=== PATIENT | male | born 2005 | race African-American/Black ===

== ENCOUNTER 2024-10-15 22:29 | Emergency (ER) | payer OTHER, SELFPAY ==
[2024-10-15 22:43] VITALS: BP 130/59
[2024-10-15 23:04] VITALS: BMI 25.6
[2024-10-15 23:09] VITALS: BP 123/66
--- NOTE | 2024-10-15 23:41 | ED.GENMED ---
History of Present Illness
General
Chief Complaint: Skin Surface Trauma
Source: patient
Time Seen by Provider: 10/15/24 23:00
History of Present Illness
History of Present Illness:
19-year-old male presents to the emergency room complaining of a laceration to his right middle finger. Patient cut the finger on a urvashi pot. Patient is right-hand dominant. His last tetanus shot was in 2014. He denies any other injuries.
Phy Exam
Physical Exam
Physical Exam:
General: Awake, Alert, Oriented X3. No acute distress.
Vitals: unremarkable
Head: Atraumatic
Eyes: Pupils equal, EOMI
Neck: Trachea midline
Neuro: Grossly nonfocal
Skin: Warm, dry, no rash
Extremities: pulses equal b/l, no edema. Approximately 2 cm laceration on the volar surface of the right middle finger. The laceration starts at the tip of the finger and extends down over the distal phalanx to the distal IP joint. Tendon exam is
intact. No foreign bodies noted.
Course
Orders/Labs/Results
Orders:
Orders
10/15/24 23:42
Tetanus/Diphth/Acelpertussis [Adacel] 0.5 ml IM .ONCE ONE
10/16/24 00:14
Tetanus/Diphth/Acelpertussis [Adacel] 0.5 ml .ROUTE .STK-MED ONE
10/16/24 00:21
Ibuprofen [Motrin] 400 mg .ROUTE .STK-MED ONE
10/16/24 00:22
Ibuprofen [Motrin] 400 mg PO NOW STA
Vital Signs
Initial and Last Documented VS:
Initial Vital Signs
Temp Pulse Resp BP Pulse Ox
98.4 F 92 20 130/59 98
10/15/24 22:43 10/15/24 22:43 10/15/24 22:43 10/15/24 22:43 10/15/24 22:43
Last Documented Vital Signs
Temp Pulse Resp BP Pulse Ox
98.4 F 95 18 123/66 99
10/15/24 22:43 10/15/24 23:09 10/15/24 23:09 10/15/24 23:09 10/15/24 23:42
Procedures
Laceration Closure
Right Middle Finger:
Size of Wound in cm: 2.5
Description of Wound Edges: sharp
Preparation: cleaned with saline
Anesthesia: Digital-Regional
Revision/Debridement: routine- no revision
Wound exploration: explored to base- no FB
Type of Closure: single layer closure
Skin Closure Material: 5-0 nylon
Number of sutures: 9
MDM/Problems Addressed
Differential Diagnosis Includes:
Laceration, retained foreign body
MDM/Problems Addressed:
Physical exam is benign. No foreign body noted on exam. Tendon exam intact. Wound closed without difficulty. recommend suture removal in 7 days.
*Pulse Oximetry
SaO2: 99
Oxygen Mode of Delivery: Room air
Patient hypoxic: no
*Critical Care Note
Total Time (30-74mins, 75-104mins- exclusive of procedures): Not Applicable
ED Attending Note
-
Portions of this chart may have been created with voice recognition software.� Occasional wrong word or��sound alike� substitutions may have occurred due to the inherent limitations of voice recognition software.
Discharge Plan
Departure
Patient Disposition: Home (Routine Discharge)
Date of Disposition: 10/16/24
Time of Disposition: 00:14
Patient with high blood pressure during this ER visit?: No
Condition: Good
Discharge Problem:
Finger laceration
Instructions: Laceration Repair With Stitches (DC)
Referrals:
NONE,* [Family Provider, Internal Medicine]
Activity Restrictions/Additional Instructions:
Stitches should be removed in 1 week. Apply antibiotic to your finger a couple times a day.
Interventions
Interventions:
*Risk Screen - Suicide Last Done: 10/15/24 22:43
*General Assessment Last Done: 10/15/24 22:43
*Neglect/Abuse Screening Last Done: 10/15/24 22:43
*ED- Fall Risk Assessment Last Done: 10/15/24 22:43
*ED COVID-19 Vaccine History Last Done: 10/15/24 22:43
ED-Skin Assessment Last Done: 10/15/24 23:08
Discharge Date and Time
Print Language: HAITIAN
[2024-10-16] MEDS: ADACEL 0.5 ML IM (00:15)
[2024-10-16] MEDS: MOTRIN 400 MG PO (00:23)
[2024-10-16 01:03] VITALS: BP 128/70
== END 2024-10-16 01:04 | disposition home or self-care (01) ==
LOC: EMR 22:29
PROVIDERS: EMERGENCY PHYSICIAN Emergency Medicine
DX: S61.212A Laceration without foreign body of right middle finger without damage to nail, initial encounter (principal); X58.XXXA Exposure to other specified factors, initial encounter
CPT/HCPCS: 99282; 12001; 90471; 90715